=== PATIENT | female | born 1990 | race African-American/Black ===

== ENCOUNTER 2016-12-13 17:20 | Emergency (ER) | payer SELFPAY ==
[2016-12-13 17:26] VITALS: BP 121/87; PULSE 115; TEMP 99.9; BMI 26.0
--- NOTE | 2016-12-13 17:58 | PDOC ---
History of Present Illness - History of Present Illness Initial Comments: 12/13/16 18:24 The patient is a 26 year old female with a significant past medical history of anemia, who presents to the Emergency Department with sore throat since this morning. Patient states she was feeling sick since yesterday and woke up this morning with a sore throat. She reports associated symptoms of subjective fever and body aches. 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 LMP 2 weeks ago She denies chest pain, shortness of breath, headache and dizziness. She denies nausea, vomiting, diarrhea, and constipation. She denies dysuria, frequency, urgency, and hematuria. NKA to medication Denies past surgical history <Nancie Hampton - Last Filed: 12/13/16 18:24> - General History Source: Patient Exam Limitations: No Limitations <Aaliyah Hutchins - Last Filed: 12/15/16 12:36> - General Chief Complaint: Sore Throat Stated Complaint: SORE THROAT Time Seen by Provider: 12/13/16 17:51 Past History <Nancie Hampton - Last Filed: 12/13/16 18:24> - Past Medical History Anemia: Yes - Suicide/Smoking/Psychosocial Hx Smoking History: Never smoked Information on smoking cessation initiated: No Hx Alcohol Use: Yes Drug/Substance Use Hx: No Substance Use Type: Alcohol <Aaliyah Hutchins - Last Filed: 12/15/16 12:36> - Past Medical History Allergies/Adverse Reactions: Allergies Allergy/AdvReac Type Severity Reaction Status Date / Time No Known Allergies Allergy Verified 12/13/16 17:23 Home Medications: Ambulatory Orders Penicillin V Potassium [Pen Vee K -] 500 mg PO TID #30 tablet 12/13/16 Naproxen Sodium [Aleve] 440 mg PO ONCE 12/15/16 Review of Systems - Review of Systems Comments:: 12/13/16 18:24 GENERAL/CONSTITUTIONAL: + subjective fever, body aches No: chills,, loss of appetite. HEAD, EYES, EARS, NOSE AND THROAT: + sore throat,No: change in vision, ear pain , discharge, CARDIOVASCULAR: No: chest pain, lightheadedness, palpitations, syncope RESPIRATORY: No: cough, shortness of breath, wheezing, hemoptysis, stridor. GASTROINTESTINAL: No: nausea, vomiting, abdominal cramping, diarrhea, rectal bleeding, constipation. GENITOURINARY: No: dysuria, hematuria, frequency, urgency, flank pain. MUSCULOSKELETAL: No: back pain, neck pain, joint pain, muscle swelling or pain SKIN AND BREASTS: No: lesions, pallor, rash or easy bruising. NEUROLOGIC: No: headache, vertigo, paresthesias, weakness ENDOCRINE: No: unexplained weight gain or loss HEMATOLOGIC/LYMPHATIC: No: anemia, easy bleeding, swelling nodes <Nancie Hampton - Last Filed: 12/13/16 18:24> *Physical Exam - Vital Signs Last Vital Signs Temp Pulse Resp BP Pulse Ox 99.9 F H 115 H 18 121/87 100 12/13/16 17:23 12/13/16 17:23 12/13/16 17:23 12/13/16 17:23 12/13/16 17:23 - Physical Exam Comments: 12/13/16 18:25 GENERAL: The patient is in no acute distress. HEAD: Normal with no signs of trauma. EYES: PERRLA, EOMI, sclera anicteric, conjunctiva clear. ENT: +Left tonsil enlarged, erythematous, thick exudate on left tonsil. Tender lymphadenopathy. Ears normal, nares patent, Moist mucous membranes. NECK: Normal range of motion, supple without lymphadenopathy, JVD, or masses. LUNGS: Breath sounds equal, clear to auscultation bilaterally. No wheezes, and no crackles. HEART:Regular rate and rhythm, normal S1 and S2 without murmur, rub or gallop. ABDOMEN: Soft, nontender, normoactive bowel sounds. No guarding, no rebound. EXTREMITIES: Normal range of motion, no edema. No clubbing or cyanosis. No erythema, or tenderness. NEUROLOGICAL: Cranial nerves II through XII grossly intact. Normal speech. No focal neurological deficits. MUSCULOSKELETAL: Back non-tender to palpation, no CVA tenderness SKIN: Warm, Dry, normal turgor, no rashes or lesions noted. <Nancie Hampton - Last Filed: 12/13/16 18:24> - Vital Signs Last Vital Signs Temp Pulse Resp BP Pulse Ox 99.9 F H 115 H 18 121/87 100 12/13/16 17:23 12/13/16 17:23 12/13/16 17:23 12/13/16 17:23 12/13/16 17:23 <Aaliyah Hutchins - Last Filed: 12/15/16 12:36> ED Treatment Course - ADDITIONAL ORDERS Additional order review: 12/13/16 17:34 Group A Strep Rapid Antigen - Final Throat NEGATIVE FOR THE ANTIGEN OF BETA HEMOLYTIC STREP GROUP A <Nancie Hampton - Last Filed: 12/13/16 18:24> Medical Decision Making - Medical Decision Making A portion of this note was documented by scribe services under my direction. I have reviewed the details of the note, within reason, and agree with the documentation with the following case summary and management plan written by me. 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 <Nancie Hampton - Last Filed: 12/13/16 18:24> - Discharge Dispostion Admit: No <Aaliyah Hutchins - Last Filed: 12/15/16 12:36> Diagnosis at time of Disposition: Pharyngitis Qualifiers: Pharyngitis/tonsillitis etiology: unspecified etiology Qualified Code(s): J02.9 - Acute pharyngitis, unspecified - Discharge Dispostion Disposition: HOME Condition at time of disposition: Stable - Prescriptions Prescriptions: Penicillin V Potassium [Pen Vee K -] 500 mg PO TID #30 tablet - Patient Instructions Printed Discharge Instructions: DI for Pharyngitis/Tonsillopharyngitis -- Adult Additional Instructions: THank you for coming to the ER today Please monitor yourself for fevers Please take your antibiotics for your throat infection Please monitor yourself for DROOLING, DIFFICULTY SWALLOWING, NOISY BREATHING, MUFFLED VOICE, If that happens or if you have any other concerns, Come back to the ER
== END 2016-12-13 18:24 | disposition home or self-care (01) ==
LOC: FER 17:20
DX: J02.9 Acute pharyngitis, unspecified (principal)
CPT/HCPCS: 87070; 87430; 99281-25

== ENCOUNTER 2016-12-15 02:42 | Emergency (ER) | payer SELFPAY ==
[2016-12-15 02:50] VITALS: BP 138/91; BMI 26.0
--- NOTE | 2016-12-15 02:53 | PDOC ---
History of Present Illness - General Chief Complaint: Cold Symptoms Stated Complaint: FEVER, BODY ACHES Time Seen by Provider: 12/15/16 02:53 History Source: Patient Exam Limitations: No Limitations - History of Present Illness Initial Comments: 12/15/16 03:00 This is a 26-year-old female who comes in complaining of fever, chills and sore throat. Patient was here 2 days ago with an exudative pharyngitis and given pen VK. Patient said she's been taking the Pen-Vee K without any improvement in her symptoms. Patient's rapid strep at that time was negative as well as her culture was negative for strep. Patient did not have a test done for mono. Patient comes in now saying that she is unable to eat and has a temperature of 102. PAST MEDICAL HISTORY: no significant history PAST SURGICAL HISTORY: no significant history FAMILY HISTORY: no pertinant history SOCIAL HISTORY: Pt lives with family and is employed. MEDICATIONS: reviewed ALLERGIES: As per nursing notes Review of Systems General: Positive fevers or chills, no weakness, no weight loss HEENT: No change in vision. Positive sore throat,. No ear pain CardioVascular: No chest pain or shortness of breath Respiratory:No cough, or wheezing. Gastrointestinal: no nausea, vomitting, diarrhea or constipation, No rectal bleeding Genitourinary: No dysuria, hematuria, or frequency Musculoskeletal: No joint or muscle pain or swelling Neurologic: No headache, vertigo, dizziness or loss of consciousness Psychiatric: nor depression Skin: No rashes or easy bruising Endocrine: no increased thirst or abnormal weight change Allergic: no skin or latex allergy All other systems reviewed and normal Exam: General: Well-nourished well-developed individual, no acute distress HEENT: Throat: There is moderate erythema of the posterior oropharynx with, tonsils moderately enlarged with exudate bilateral, there is no peritonsillar abscess Neck: Supple, no meningeal signs, positive bilateral lymphadenopathy Eyes::Pupils equal reactive and round, extraocular motion intact Chest: Nontender to palpation Cardiac: S1-S2 normal, regular rate and rhythm, no murmurs rubs or gallops Respiratory: Lungs clear to auscultation bilateral Abdomen: Soft, nondistended, normal bowel sounds, nontender to palpation diffusely Extremities: Warm, dry, no cyanosis, clubbing, or edema Skin: No rashes Neuro: Alert and oriented x3, nonfocal exam, grossly intact, normal gait Psych: Normal mood and affect Past History - Past Medical History Allergies/Adverse Reactions: Allergies Allergy/AdvReac Type Severity Reaction Status Date / Time No Known Allergies Allergy Verified 12/13/16 17:23 Home Medications: Ambulatory Orders Penicillin V Potassium [Pen Vee K -] 500 mg PO TID #30 tablet 12/13/16 Naproxen Sodium [Aleve] 440 mg PO ONCE 12/15/16 Anemia: Yes - Suicide/Smoking/Psychosocial Hx Smoking History: Never smoked Hx Alcohol Use: Yes Drug/Substance Use Hx: No Substance Use Type: Alcohol *Physical Exam - Vital Signs Last Vital Signs Temp Pulse Resp BP Pulse Ox 102.1 F H 121 H 16 138/91 98 12/15/16 02:47 12/15/16 02:47 12/15/16 02:47 12/15/16 02:47 12/15/16 02:47 ED Treatment Course - LABORATORY CBC & Chemistry Diagram: 12/15/16 03:00 *DC/Admit/Observation/Transfer Diagnosis at time of Disposition: Pharyngitis Qualifiers: Pharyngitis/tonsillitis etiology: unspecified etiology Qualified Code(s): J02.9 - Acute pharyngitis, unspecified - Discharge Dispostion Disposition: HOME Condition at time of disposition: Stable - Patient Instructions Additional Instructions: Your mono test was not available tonight will not be done until the morning. Call in the morning for the result. It is positive the symptoms will eventually run their course but will take several more days before the pharyngitis since improved. Purchase [id number] liquid Tylenol or Motrin that you can use for pain as it is easier to swallow and try to stay hydrated as much as possible. Return to the emergency department immediately with ANY new, persistent or worsening symptoms. Continue any medications as previously prescribed by your physician. You should follow up with your primary doctor as soon as possible regarding today's emergency department visit. . Please make sure your doctor reviews the results of your emergency evaluation. Thank you for coming to the Emergency Department today for your care. It was a pleasure to see you today. Please note that your evaluation is INCOMPLETE until you follow-up with your doctor.
[2016-12-15] MEDS ORDERED: ACETAMINOPHEN 1000 MG/100 ML VIAL (NON FORMULARY) IVPB ONE (02:58)
[2016-12-15] MEDS ORDERED: SODIUM CHLORIDE 1,000 ML IV ONE (02:59)
[2016-12-15] MEDS ORDERED: DEXAMETHASONE SOD PHOSPHATE 10 MG/1 ML VIAL IVPUSH ONE (02:59)
[2016-12-15] MEDS ORDERED: DEXAMETHASONE SOD PHOSPHATE 10 MG/1 ML VIAL ONE (03:05)
[2016-12-15] MEDS ORDERED: ACETAMINOPHEN INJECTION 100 ML IVPB ONE (03:05)
[2016-12-15 03:41] LABS: BASOPHIL 0.6 % (0-2.0); EOSINOPHIL 0.1 % (0-4.5); MCH 20.3 pg (25.7-33.7); MCHC 32.1 g/dl (32.0-36.0); MEAN CELL VOLUME 63.1 fl (80-96); MEAN PLT VOLUME 9.7 fl (7.5-11.1); NEUTROPHILS 74.9 % (42.8-82.8); PLATELET COUNT 189 K/MM3 (134-434); RDW 19.8 % (11.6-15.6); WHITE BLOOD COUNT 9.4 K/mm3 (4.0-10.0)
[2016-12-15 04:12] VITALS: PULSE 93; TEMP 99.8
== END 2016-12-15 04:20 | disposition home or self-care (01) ==
LOC: FER 02:42
PROC: 3E033NZ Introduction of Analgesics, Hypnotics, Sedatives into Peripheral Vein, Percutaneous Approach (ICD-10-PCS; principal; 2016-12-15)
PROC: 3E033GC Introduction of Other Therapeutic Substance into Peripheral Vein, Percutaneous Approach (ICD-10-PCS; 2016-12-15)
PROC: 3E0337Z Introduction of Electrolytic and Water Balance Substance into Peripheral Vein, Percutaneous Approach (ICD-10-PCS; 2016-12-15)
DX: J02.9 Acute pharyngitis, unspecified (principal); D64.9 Anemia, unspecified
CPT/HCPCS: 36415; 85025; 86308; 99282-25

== ENCOUNTER 2018-09-23 02:45 | Inpatient (IN) | payer BC ==
[2018-09-23] MEDS: ELECTROLYTE-148 SOLN 1,000 ML IV SCH ×2 (03:15→05:30)
[2018-09-23 03:30] VITALS: BMI 31.7
[2018-09-23] MEDS ORDERED: PROMETHAZINE HCL 25 MG/1 ML VIAL IVPB ONE (03:45)
[2018-09-23] MEDS ORDERED: BUTORPHANOL TARTRATE 2 MG/ML VIAL IVPB ONE (03:45)
[2018-09-23 03:51] LABS: BASO % 0.2 % (0-2.0); EOS % 2.3 % (0-4.5); HEMATOCRIT 30.5 % (32.4-45.2); HEMOGLOBIN 9.4 GM/dL (10.7-15.3); MCHC 30.7 g/dl (32.0-36.0); MEAN PLT VOLUME 9.2 fl (7.5-11.1); MONO % 7.1 % (3.8-10.2); NEUT % 72.4 % (42.8-82.8); PLATELET COUNT 195 K/MM3 (134-434); RBC 4.92 M/mm3 (3.60-5.2); RDW 23.8 % (11.6-15.6); WHITE BLOOD COUNT 10.5 K/mm3 (4.0-10.0)
[2018-09-23 04:03] LABS: INR 0.94 (0.83-1.09); PROTHROMBIN TIME (PATIENT) 11.1 SEC (9.7-13.0)
[2018-09-23 04:06] LABS: ACTIVATED PTT 31.1 SECONDS (25.2-36.5)
[2018-09-23 04:10] LABS: BLOOD UREA NITROGEN 7.9 mg/dL (7-18); CALCIUM 8.4 mg/dL (8.5-10.1); CREATININE 0.5 mg/dL (0.55-1.3)
[2018-09-23] MEDS ORDERED: FENTANYL/BUPIVACAINE/NS/PF - PCEA - 50 ML DISP.SYRIN EP ONE ×4 (04:48→20:24)
[2018-09-23] MEDS ORDERED: NALOXONE HCL 0.4 MG/ML VIAL IVPUSH PRN (05:49)
[2018-09-23] MEDS: FENTANYL/BUPIVACAINE/NS/PF - PCEA - 50 ML DISP.SYRIN EP SCH (05:50)
[2018-09-23 06:14] LABS: ANISOCYTOSIS 2+; MACROCYTOSIS 0; PLATELET ESTIMATE DECREASED
--- NOTE | 2018-09-23 11:24 | HP ---
"Past Medical History - Admission History of Present Illness: 28 yo @ 40 0/7 wks by first trimester ultrasound, EDC 09/23/2018 complicated by: 1. Elevated 1 H GCT - 147; passed 3 H GTT (82 | 168 | 150 | 135) Most recent growth 2867 (52%ile) on 08/26/2018 2. Late care; first visit at 18 wks, no visit between 18-26 weeks 3. Enlarged right kidney Measured 8.1 mm on 09/13/2018 Patient presents with chief complaint of contractions, she was found to be 3 cm dilated on admission. She reports movement, denies leakage of fluid or vaginal bleeding History Source: Patient Limitations to Obtaining History: No Limitations - Past Medical History Cardiovascular: No: HTN Pulmonary: No: Asthma ...: 2 ...Para: 0 ...Term: 0 ...: 0 ...Spon : 0 ...Induced : 1 ...Multiple Gestation: 0 ...LMP: 12/22/17 ... Weeks Gestation by Dates: 39.2 ...EDC by Dates: 09/28/18 ...EDC by Sono: 09/23/18 Heme/Onc: No: Anemia - Past Surgical History Hx Myomectomy: No Hx Transabdominal Cerclage: No Additional Surgical History: Hernia Repair - Smoking History Smoking history: Never smoked Have you smoked in the past 12 months: No - Alcohol/Substance Use Hx Alcohol Use: No History of Substance Use: reports: None - Social History History of Recent Travel: No Home Medications - Allergies Allergies/Adverse Reactions: Allergies Allergy/AdvReac Type Severity Reaction Status Date / Time No Known Allergies Allergy Verified 09/23/18 03:17 - Home Medications Home Medications: Ambulatory Orders Vit No.129/Iron/Folic [ One Daily Tablet] 1 each PO DAILY 09/23 Family Disease History - Family Disease History Family History: Denies Review of Systems - Review of Systems Constitutional: reports: No Symptoms Neck: reports: No Symptoms Cardiovascular: reports: No Symptoms Respiratory: reports: No Symptoms Gastrointestinal: reports: No Symptoms Musculoskeletal: reports: No Symptoms Integumentary: reports: No Symptoms Neurological: reports: No Symptoms Endocrine: reports: No Symptoms Hematology/Lymphatic: reports: No Symptoms Psychiatric: reports: No Symptoms Physical Exam - Maternity Vital Signs: Vital Signs Temperature 98.4 F 09/23/18 08:00 Pulse Rate 104 H 09/23/18 10:30 Respiratory Rate 18 09/23/18 10:30 Blood Pressure 114/59 L 09/23/18 10:30 O2 Sat by Pulse Oximetry (%) 99 09/23/18 10:30 Constitutional: Yes: Well Nourished, No Distress, Calm Cardiovascular: Yes: Regular Rate and Rhythm Lungs: Clear to auscultation - Abdominal Exam/OB Number of Fetuses: Single Presentation: Vertex Category: I - Labs Lab Results: CBC, BMP 09/23/18 03:30 09/23/18 03:30 PNL - O positive, antibody negative, RPR NR; HIV neg; HCV neg; HBs Ag neg; Hg Cielo AA; Parvo IgG pos; Rubella Imm; Varicella Imm; GCT elevated, normal GTT, GBS negative Hemorrhage Risk Assessment - Risk Factors Medium Risk Factors: Yes: None High Risk Factors: Yes: None Risk Score: 1 Risk Level: Medium Risk Assessment/Plan 28 yo @ 40 wks active labor 1. Admit to L&D 2. Consents reviewed and signed 3. GBS negative 4. Category I FHT 5. Pain well controlled with epidural 6. Will proceed with expectant management"
--- NOTE | 2018-09-23 20:41 | PN ---
Progress Note, Labor Vaginal Exam #1 Labor Exam Date: 09/23/18 Labor Exam Time: 20:15 Heart Rate (range): 130's Dilatation: 7-8cm Effacement (%): 80% Amniotic Membrane Status: Ruptured (thick meconium) Presentation: Vertex/Position Station: -4 Remarks: Minimal progress since am head is unengaged Thick meconium Patient counseled to have a c/section, consent signed O2 by face mask
[2018-09-23] MEDS ORDERED: LIDO 2%/EPI 1:200000 PRESRVFRE (20 ML SDVIAL) ONE (21:45)
[2018-09-23] MEDS ORDERED: PHENYLEPHRINE HCL 10 MG/1 ML SINGLE DOSE VIAL ONE ×2 (22:09→22:22)
[2018-09-23] MEDS ORDERED: OXYTOCIN 10 UNITS/ML VIAL ONE (22:09)
[2018-09-23] MEDS ORDERED: KETOROLAC TROMETHAMINE 30 MG/1 ML VIAL ONE (22:09)
[2018-09-23] MEDS ORDERED: IBUPROFEN 800 MG/8 ML IJ IVPB PRN (23:15)
[2018-09-23] MEDS ORDERED: oxyCODONE HCL 5 MG TABLET PO PRN ×2 (23:15)
[2018-09-23] MEDS ORDERED: BENZOCAINE 28 GM HEMORRHOIDAL OINTMENT PR PRN (23:15)
[2018-09-23] MEDS ORDERED: BENZOCAINE 20% 57 GM BOTTLE TP PRN (23:15)
[2018-09-23] MEDS ORDERED: OXYTOCIN 20 UNITS in 0.9% NS 20 UNIT/1,000 ML INFUS.BAG IV SCH (23:15)
[2018-09-23] MEDS ORDERED: WITCH HAZEL 50% (TUCKS) 40 PAD/JAR PAD TP PRN (23:15)
[2018-09-23] MEDS ORDERED: METHYLERGONOVINE MALEATE 0.2 MG/1 ML AMP IM PRN (23:15)
[2018-09-23] MEDS ORDERED: diphenhydrAMINE HCL 25 MG CAPSULE (FP) PO PRN (23:15)
--- NOTE | 2018-09-23 23:15 | OP ---
Operative Note - Note: Operative Date: 09/23/18 Pre-Operative Diagnosis: 28yo P0 @ 40 wks with Category 2 FHR, thick meconium, failure to descent Operation: Primary LST c/section Findings: Viable female, APGARs 8/9, WT 7.9lb Normal bl tubes and ovaries Post-Operative Diagnosis: Same as Pre-op Surgeon: Alpa Blanc [facility] Music Therapist: Montrell Guerrero Anesthesiologist/TROUBLE CLERK: Ezio Eagle Anesthesia: Epidural Estimated Blood Loss (mls): 700 Drains, Volume Out (mls): 150 Fluid Volume Replaced (mls): 800 Operative Report Dictated: Yes
--- NOTE | 2018-09-23 23:25 | PN ---
Delivery - Delivery Section: Primary Type of Anesthesia: Epidural Episiotomy/Laceration: None EBL (cc): 700 Delivery, Single - Stages of Labor Date of Delivery: 09/23/18 Time of Delivery: : Date Placenta Delivered: 09/23/18 Time Placenta Delivered: Placenta: Yes: Expressed - Condition of Infant Landman/Internal Combustion Engineer Present: Yes Name: Dayna Suazo Gender: Female Weight: 7 lb 9 oz Position: Right, OA - 1 Minute Total Score: 8 5 Minutes Total Score: 9 - Feeding Plan Initial Plan: Elected not to breastfeed exclusively throughout hospitalization Benefits of Exclusively reinforced: Yes Remarks - Remarks Remarks: 28yo P0 @ 40 wks with Category 2 FHR Thick meconium and failure to descent
[2018-09-23] MEDS ORDERED: ONDANSETRON 4 MG/2 ML VIAL IVPUSH PRN (23:46)
--- NOTE | 2018-09-24 00:34 | OP ---
DATE OF OPERATION: 09/23/2018 PREOPERATIVE DIAGNOSIS: 28-year-old para 0 at 40 weeks, category 2 heart rate, thick meconium, failure to descend. OPERATION: Primary low segment transverse section. FINDINGS: Viable female Apgars 8 and 9, weight 7.5 pounds, normal bilateral tubes and ovaries. POSTOPERATIVE DIAGNOSIS: 28-year-old para 0 at 40 weeks, category 2 heart rate, thick meconium, failure to descend. SURGEON: Alpa Blanc M.D. ANESTHESIOLOGIST: Piotr Benson ANESTHESIOLOGIST: Harley Eagle M.D. ANESTHESIA: DESCRIPTION OF OPERATIVE PROCEDURE: After assuring informed consent, patient was brought to the operating room where she was placed in dorsal supine position with left lateral tilt. Abdomen was prepped and draped in sterile fashion. Pfannenstiel skin incision was created with the scalpel, carried down to the level of the fascia with Bovie cautery. Fascia was incised with Bovie cautery, extended bilaterally with Bovie cautery and dissected through the rectus abdominis muscle with the Bovie cautery. The rectus abdominis muscle was split in the midline. Peritoneum was identified, tented, and entered bluntly. The bilateral gutters were packed with lap sponges. Vesicouterine peritoneum was identified, tented, and bladder flap was created with Metzenbaum scissors and retracted with low edge of the Geoffrey. Uterine incision was created with the scalpel and extended bilaterally with bandage scissors. 's head was identified and delivered through the uterine incision in the AISHA position. Thick meconium was noted. The rest of the 's body was delivered without any trauma or difficulty. Cord was clamped x2. The was handed to the waiting cover inspector. Piece of the umbilical cord was given for determination of the pH. Placenta was expressed. The uterus was left intraperitoneally and repaired with 0 Biosyn in running, locking fashion and the 2nd imbricating layer was created with 0 Biosyn. Abdomen was copiously irrigated and bilateral normal tubes were visualized. Lap sponges were removed, and peritoneum was repaired with 0 Biosyn in a running fashion. Rectus abdominis muscle was reapproximated in the midline with 0 Biosyn. Fascia was repaired with 0 Vicryl in the running fashion. Subcuticular suture with 4-0 V-Loc Biosyn stitch was created. Excellent hemostasis was noted throughout. The lap, sponges, and instrument count was correct x2. Patient was brought to the recovery room in stable condition. Estimated blood loss was 700 mL. Urine output was 150 mL. Patient received 800 mg of IV fluids, brought to the recovery room in stable condition. Shabbir [id number]
[2018-09-24] MEDS ORDERED: OXYTOCIN 20 UNITS in 0.9% NS 20 UNIT/1,000 ML INFUS.BAG IV ONE (00:38)
[2018-09-24] MEDS: CEFAZOLIN 1 GM/D5W 1 GM/50 ML BAG IVPB SCH ×2 (02:26→10:30)
[2018-09-24] MEDS: DEXTROSE 5%-LACTATED RINGERS 1,000 ML IV SCH (07:00)
[2018-09-24] MEDS: FENTANYL/BUPIVACAINE/NS/PF - PCEA - 50 ML DISP.SYRIN EP SCH (07:01)
[2018-09-24 07:49] LABS: BASO % 0.2 % (0-2.0); EOS % 0.3 % (0-4.5); HEMATOCRIT 24.3 % (32.4-45.2); HEMOGLOBIN 7.4 GM/dL (10.7-15.3); LYMPH % 11.9 % (8-40); MCHC 30.4 g/dl (32.0-36.0); MEAN CELL VOLUME 61.6 fl (80-96); MEAN PLT VOLUME 9.3 fl (7.5-11.1); MONO % 7.3 % (3.8-10.2); NEUT % 80.3 % (42.8-82.8); PLATELET COUNT 174 K/MM3 (134-434); RBC 3.94 M/mm3 (3.60-5.2); RDW 23.8 % (11.6-15.6); WHITE BLOOD COUNT 11.5 K/mm3 (4.0-10.0)
[2018-09-24 08:17] LABS: MCH 18.7 pg (25.7-33.7)
[2018-09-24] MEDS: ELECTROLYTE-148 SOLN 1,000 ML IV SCH (09:30)
[2018-09-24] MEDS: ENOXAPARIN NA (PORCINE) 40 MG/0.4 ML DISP.SYRIN SQ SCH (10:30)
--- NOTE | 2018-09-24 11:25 | PN ---
Post Progress Note - Subjective Subjective: Patient without acute complaints. Tolerating clears, without nausea or vomiting No voiding, perrin in place draining clear fluid No ambulation or flatus yet. Denies fevers or chills. No complains of Dizziness or palpitations Pain well controlled. Post Day: 1 Type of Delivery: Primary C/S Vital Signs: Vital Signs Temperature 98.0 F 09/24/18 06:00 Pulse Rate 100 H 09/24/18 06:00 Respiratory Rate 18 09/24/18 09:00 Blood Pressure 138/82 09/24/18 06:00 O2 Sat by Pulse Oximetry (%) 100 09/23/18 23:50 Breast Exam: Yes: Soft Uterus: Yes: Fundus Firm, Fundus @ umbilicus Incision: Yes: Dressing dry and intact Abdomen/GI: Yes: Abdomen soft Lochia: Yes: Rubra Lochia, amount: Small Extremities: Yes: Calves non-tender Perineum: Yes: Intact Activity: Other (in bed with perrin catheter) - Labs Labs: CBC WBC 11.5 K/mm3 (4.0-10.0) H 09/24/18 07:10 RBC 3.94 M/mm3 (3.60-5.2) 09/24/18 07:10 Hgb 7.4 GM/dL (10.7-15.3) L 09/24/18 07:10 Hct 24.3 % (32.4-45.2) L D 09/24/18 07:10 MCV 61.6 fl (80-96) L 09/24/18 07:10 MCH 18.7 pg (25.7-33.7) L 09/24/18 07:10 MCHC 30.4 g/dl (32.0-36.0) L 09/24/18 07:10 RDW 23.8 % (11.6-15.6) H 09/24/18 07:10 Plt Count 174 K/MM3 (134-434) 09/24/18 07:10 MPV 9.3 fl (7.5-11.1) 09/24/18 07:10 Absolute Neuts (auto) 9.2 K/mm3 (1.5-8.0) H 09/24/18 07:10 Neutrophils % 80.3 % (42.8-82.8) 09/24/18 07:10 Lymphocytes % 11.9 % (8-40) D 09/24/18 07:10 Monocytes % 7.3 % (3.8-10.2) 09/24/18 07:10 Eosinophils % 0.3 % (0-4.5) D 09/24/18 07:10 Basophils % 0.2 % (0-2.0) 09/24/18 07:10 Nucleated RBC % 0 % (0-0) 09/24/18 07:10 Hypochromia 2+ 09/23/18 03:30 Platelet Estimate Decreased 09/23/18 03:30 Polychromasia 0 09/23/18 03:30 Poikilocytosis 1+ 09/23/18 03:30 Anisocytosis 2+ 09/23/18 03:30 Microcytosis 2+ 09/23/18 03:30 Macrocytosis 0 09/23/18 03:30 Assessment/Plan 28yo P1 now POD # 1 s/p 1' LST c/section for CPD, Category 2 FHR, Thick meconium VSS, Afebrile Doing well Odered Heplock IVF D/C Perrin Rh pos no need for RhoGam OOB to Chair hemodynamically stable cont. routine care
[2018-09-24] MEDS: IBUPROFEN 600 MG TABLET (FP) PO PRN ×2 (13:44→20:33)
[2018-09-24] MEDS: SIMETHICONE 80 MG TAB.CHEW (FP) PO PRN ×2 (13:44→20:33)
[2018-09-24] MEDS: ACETAMINOPHEN 325 MG TABLET (FP) PO PRN ×2 (13:45→20:34)
[2018-09-24] MEDS ORDERED: BISACODYL 10 MG SUPP.RECT PR PRN (23:15)
[2018-09-25] MEDS: SIMETHICONE 80 MG TAB.CHEW (FP) PO PRN ×2 (00:41→07:25)
[2018-09-25] MEDS: IBUPROFEN 600 MG TABLET (FP) PO PRN ×4 (00:42→23:29)
[2018-09-25] MEDS: ACETAMINOPHEN 325 MG TABLET (FP) PO PRN ×4 (00:42→23:29)
[2018-09-25] MEDS: ELECTROLYTE-148 SOLN 1,000 ML IV SCH (08:19)
[2018-09-25] MEDS: FENTANYL/BUPIVACAINE/NS/PF - PCEA - 50 ML DISP.SYRIN EP SCH (08:19)
[2018-09-25] MEDS: DEXTROSE 5%-LACTATED RINGERS 1,000 ML IV SCH ×2 (08:32→23:26)
[2018-09-25] MEDS: ENOXAPARIN NA (PORCINE) 40 MG/0.4 ML DISP.SYRIN SQ SCH (10:43)
--- NOTE | 2018-09-25 10:55 | PN ---
Progress Note (short form) - Note Progress Note: Post op day#2.S/P C Section under epidural anesthesia with duramorph uneventful.Patient stable and has little pain for which she is on medication.No any anesthesia related problem.Patient Dc from the anesthesia care.
--- NOTE | 2018-09-25 17:31 | PN ---
Post Progress Note - Subjective Subjective: Patient without acute complaints. Tolerating clears, without nausea or vomiting Voiding without a problem Ambulating, + flatus Denies fevers or chills. Pain well controlled. Post Day: 2 Type of Delivery: Primary C/S Vital Signs: Vital Signs Temperature 98.5 F 09/25/18 10:00 Pulse Rate 92 H 09/25/18 10:00 Respiratory Rate 18 09/25/18 10:00 Blood Pressure 126/67 09/25/18 10:00 O2 Sat by Pulse Oximetry (%) 100 09/23/18 23:50 - Labs Labs: CBC WBC 11.5 K/mm3 (4.0-10.0) H 09/24/18 07:10 RBC 3.94 M/mm3 (3.60-5.2) 09/24/18 07:10 Hgb 7.4 GM/dL (10.7-15.3) L 09/24/18 07:10 Hct 24.3 % (32.4-45.2) L D 09/24/18 07:10 MCV 61.6 fl (80-96) L 09/24/18 07:10 MCH 18.7 pg (25.7-33.7) L 09/24/18 07:10 MCHC 30.4 g/dl (32.0-36.0) L 09/24/18 07:10 RDW 23.8 % (11.6-15.6) H 09/24/18 07:10 Plt Count 174 K/MM3 (134-434) 09/24/18 07:10 MPV 9.3 fl (7.5-11.1) 09/24/18 07:10 Absolute Neuts (auto) 9.2 K/mm3 (1.5-8.0) H 09/24/18 07:10 Neutrophils % 80.3 % (42.8-82.8) 09/24/18 07:10 Lymphocytes % 11.9 % (8-40) D 09/24/18 07:10 Monocytes % 7.3 % (3.8-10.2) 09/24/18 07:10 Eosinophils % 0.3 % (0-4.5) D 09/24/18 07:10 Basophils % 0.2 % (0-2.0) 09/24/18 07:10 Nucleated RBC % 0 % (0-0) 09/24/18 07:10 Hypochromia 2+ 09/23/18 03:30 Platelet Estimate Decreased 09/23/18 03:30 Polychromasia 0 09/23/18 03:30 Poikilocytosis 1+ 09/23/18 03:30 Anisocytosis 2+ 09/23/18 03:30 Microcytosis 2+ 09/23/18 03:30 Macrocytosis 0 09/23/18 03:30 Assessment/Plan 28yo P1 now POD # 2 s/p 1' LST c/section for CPD, Category 2 FHR, Thick meconium VSS, Afebrile Doing well Rh pos no need for RhoGam Encourage ambulation hemodynamically stable cont. routine care
[2018-09-25] MEDS ORDERED: SENNOSIDES/DOCUSATE COMBO (SENNA PLUS) TABLET (UD) PO PRN (22:00)
[2018-09-26 07:29] LABS: BASO % 0.3 % (0-2.0); EOS % 3.2 % (0-4.5); HEMATOCRIT 25.4 % (32.4-45.2); HEMOGLOBIN 7.6 GM/dL (10.7-15.3); LYMPH % 16.8 % (8-40); MCHC 29.9 g/dl (32.0-36.0); MEAN CELL VOLUME 62.7 fl (80-96); MEAN PLT VOLUME 8.8 fl (7.5-11.1); MONO % 5.3 % (3.8-10.2); NEUT % 74.4 % (42.8-82.8); RBC 4.05 M/mm3 (3.60-5.2); RDW 23.6 % (11.6-15.6); WHITE BLOOD COUNT 12.3 K/mm3 (4.0-10.0)
[2018-09-26 08:22] LABS: MCH 18.8 pg (25.7-33.7); PLATELET COUNT 195 K/MM3 (134-434)
[2018-09-26] MEDS: IBUPROFEN 600 MG TABLET (FP) PO PRN (09:11)
[2018-09-26] MEDS: ENOXAPARIN NA (PORCINE) 40 MG/0.4 ML DISP.SYRIN SQ SCH (09:11)
[2018-09-26 11:21] LABS: ANISOCYTOSIS 2+; MACROCYTOSIS 1+; OVALOCYTE 1+; PLATELET ESTIMATE NORMAL; TEAR DROP CELLS 1+
--- NOTE | 2018-09-26 11:29 | PN ---
Post Progress Note - Subjective Subjective: Patient without acute complaints. Reports tolerating oral intake without nausea or vomiting. Ambulating without dizziness. Denies fevers or chills. Pain well controlled with oral pain medication. without difficulty. Passing flatus. Post Day: 3 Type of Delivery: Primary C/S Vital Signs: Vital Signs Temperature 98.2 F 09/25/18 22:00 Pulse Rate 88 09/25/18 22:00 Respiratory Rate 18 09/25/18 22:00 Blood Pressure 131/77 09/25/18 22:00 O2 Sat by Pulse Oximetry (%) 100 09/26/18 09:00 Breast Exam: Yes: Soft Uterus: Yes: Fundus Firm Incision: Yes: Sutures intact. No: Redness, Oozing Abdomen/GI: Yes: Abdomen soft, Abdominal Distention (mild soft), Tender ( minimal incisional), Passing flatus, Tolerating PO Lochia: Yes: Rubra Lochia, amount: Small Extremities: Yes: Calves non-tender, Edema (trace) Activity: Ambulating - Labs Labs: CBC WBC 12.3 K/mm3 (4.0-10.0) H 09/26/18 06:44 RBC 4.05 M/mm3 (3.60-5.2) 09/26/18 06:44 Hgb 7.6 GM/dL (10.7-15.3) L 09/26/18 06:44 Hct 25.4 % (32.4-45.2) L 09/26/18 06:44 MCV 62.7 fl (80-96) L 09/26/18 06:44 MCH 18.8 pg (25.7-33.7) L 09/26/18 06:44 MCHC 29.9 g/dl (32.0-36.0) L 09/26/18 06:44 RDW 23.6 % (11.6-15.6) H 09/26/18 06:44 Plt Count 195 K/MM3 (134-434) 09/26/18 06:44 MPV 8.8 fl (7.5-11.1) 09/26/18 06:44 Absolute Neuts (auto) 9.1 K/mm3 (1.5-8.0) H 09/26/18 06:44 Neutrophils % 74.4 % (42.8-82.8) 09/26/18 06:44 Lymphocytes % 16.8 % (8-40) D 09/26/18 06:44 Monocytes % 5.3 % (3.8-10.2) 09/26/18 06:44 Eosinophils % 3.2 % (0-4.5) D 09/26/18 06:44 Basophils % 0.3 % (0-2.0) 09/26/18 06:44 Nucleated RBC % 0 % (0-0) 09/26/18 06:44 Hypochromia 2+ 09/23/18 03:30 Platelet Estimate Decreased 09/23/18 03:30 Polychromasia 0 09/23/18 03:30 Poikilocytosis 1+ 09/23/18 03:30 Anisocytosis 2+ 09/23/18 03:30 Microcytosis 2+ 09/23/18 03:30 Macrocytosis 0 09/23/18 03:30 Assessment/Plan 30 POD # 3 s/p primary CD, afebrile, vital signs stable, doing well 1. Patient desires DC home today if baby stable for DC home - awaiting bili level 2. Patient encouraged to contact MD for: - Severe pain not controlled by oral pain medication - Fevers or chills - Nausea or vomiting, intolerance of oral intake - Incision redness, tenderness or discharge 3. Patient to follow up in office in 1-2 weeks for incision check, 4-6 weeks for visit
[2018-09-26 11:31] VITALS: BP 135/81; PULSE 89; TEMP 98.7
--- NOTE | 2018-09-26 15:45 | DS ---
Physical Exam-CERTIFIED MEDICAL BILLER Vital Signs: Vital Signs Temperature 98.7 F 09/26/18 10:00 Pulse Rate 89 09/26/18 10:00 Respiratory Rate 20 09/26/18 10:00 Blood Pressure 135/81 09/26/18 10:00 O2 Sat by Pulse Oximetry (%) 100 09/26/18 09:00 Labs: CBC, BMP 09/26/18 06:44 09/23/18 03:30 Delivery - Delivery Section: Primary Type of Anesthesia: Epidural Episiotomy/Laceration: None EBL (cc): 700 Delivery, Single - Stages of Labor Date 1st Stage Initiatied: 09/23/18 Time 1st Stage Initiated: 03:05 Date of Delivery: 09/23/18 Time of Delivery: 22:24 Time Placenta Delivered: 22:25 Placenta: Yes: Expressed - Condition of Research Hydraulic Engineer/Tire Mold Tester Present: Yes Name: Dayna Suazo Infant Gender: Female Weight: 7 lb 9 oz Position: Right, OA Total Hours ROM (Hrs/Mins): 10hrs 45min - 1 Minute Total Score: 8 5 Minutes Total Score: 9 - Feeding Plan Initial Plan: Elected not to breastfeed exclusively throughout hospitalization Benefits of Exclusively reinforced: Yes Discharge Summary Reason For Visit: LABOR Current Active Problems Anemia (Acute) delivery delivered (Acute) Hospital Course: Patient admitted for labor Progressed to 8 cm, however head without decent. She underwent delivery POD # 1 patient ambulated, voiding, passing gas, tolerating oral intake and with adequate pain control. Noted to have mild asymptomatic anemia She fulfilled all criteria for discharge POD #3 Condition: Good - Instructions Diet, Activity, Other Instructions: Return to office in 1 week for incision check; 4-6 weeks for visit Physical activity Resume your normal everyday activity as tolerated no heavy lifting or exercise until seen by your surgeon. You may walk unlimited brisa of and climb stairs. You may resume driving the car when you feel safe and comfortable behind the wheel. No sexual activity as instructed. Wound care If you have a bandage, leave it on, and keep dry for 48-72 hours. After that time discard the outer bandage. If they are tapes on the skin under the out of bandage leave them in place. They will peel off in the next 7 to 10 days. Do Not Peel them off. You may shower the day after surgery. If there are tapes present on the skin, you may shower over them. Diet There are no dietary restrictions. Eat healthy, high-fiber foods. Drink 6 to 8 glasses of liquid each day. This will assist in keeping your bowels are regular. Pain management You may take Tylenol or acetaminophen or Ibuprofen (for example, Motrin, Advil etc.) as prescribed for moderate to severe pain. Call MD for any of the following: Severe pain not relieved by medication Fever of 101 or higher Excessive bleeding or drainage on dressing Inability to urinate [facility] Reference #: [id number] Referrals: Mallorie Mcfarlane MD [Staff Physician] - Disposition: HOME - Home Medications Comprehensive Discharge Medication List: Ambulatory Orders Vit No.129/Iron/Folic [ One Daily Tablet] 1 each PO DAILY 09/23 Ibuprofen [Motrin -] 600 mg PO QID #28 tablet 09/26/18 Oxycodone HCl/Acetaminophen [Percocet 5-325 mg Tablet] 1 tab PO Q6H #5 tablet MDD 4 09/26/18
--- NOTE | 2018-09-30 15:56 | PATH ---
Surgical Pathology Report Patient Name: MUSA CHANDLER Med. Rec. #: [id number] /Age/Gender: 1990 (Age: 28) / F Account: [id number] Location: [facility] OBS/CHIEF TECHNICAL OFFICER Taken: 09/23/2018 Received: 09/24/2018 Reported: 09/30/2018 Physicians: Shabbir Thrasher Specimen(s) Received PLACENTA Clinical History , 40 weeks, failure to descend, Cat II heart rate Final Diagnosis PLACENTA, SECTION: 474 G THIRD TRIMESTER PLACENTA WITH TRIVASCULAR UMBILICAL CORD AND FOCAL MILD ACUTE CHORIOAMNIONITIS. Electronically Signed Kathleen Cade M.D. Gross Description The specimen is received fresh labeled placenta and is a 474 gram, 16.5 x 13.5 x 3.3 cm. placenta with attached membranes and umbilical cord. The attached membranes are theodore, thick, cloudy and insert marginally. The umbilical cord measures 16 cm. in length and averages 1.2 cm. in diameter. The cord inserts eccentrically, 5 cm. to the nearest margin. No true knots or strictures are identified. Cut surface of the umbilical cord reveals 3 vessels. The surface is gallegos-blue with minimal fibrin deposition and appropriate caliber vessels. The maternal surface is red-brown with focal defects. Sectioning reveals red-brown, spongy parenchyma. No lesions are identified. Building Insulation Supervisor sections are submitted in three cassettes as follows: 1- membrane rolls and umbilical cord; 2-3- full thickness sections of placenta. 09/27/2018 [facility]09/27/2018
== END 2018-09-26 16:10 | disposition home or self-care (01) | DRG 788 ==
LOC: JDEL 02:45 → JLDR 03:05 → J3W 09-24 00:50
PROVIDERS: ADMIT Obstetrics & Gynecology; ATTEND Obstetrics & Gynecology
PROC: 10D00Z1 Extraction of Products of Conception, Low, Open Approach (ICD-10-PCS; principal; 2018-09-23)
DX: O48.0 Post-term pregnancy (principal); O77.0 Labor and delivery complicated by meconium in amniotic fluid; O32.4XX0 Maternal care for high head at term, not applicable or unspecified; O76 Abnormality in fetal heart rate and rhythm complicating labor and delivery; Z3A.40 40 weeks gestation of pregnancy; Z37.0 Single live birth
CPT/HCPCS: 36415; 36600; 80048; 82803; 85025; 85610; 85730; 86593; 86850; 86900; 86901; 87389; 88307-TC

== ENCOUNTER 2020-11-12 20:54 | Emergency (ER) | payer BC ==
[2020-11-12 21:14] VITALS: BP 124/76; PULSE 18; TEMP 98.2; BMI 28.3
[2020-11-12 21:16] LABS: EPITHELIAL CELLS FEW /hpf
[2020-11-12 21:18] LABS: HCG,QUALITATIVE URINE Negative
[2020-11-12] MEDS ORDERED: CIPROFLOXACIN 500 MG TABLET (RESTRICTED TO ID) PO ONE (21:21)
[2020-11-12] MEDS ORDERED: cefTRIAXone SODIUM 1 GM VIAL ONE (21:23)
[2020-11-12] MEDS ORDERED: CIPROFLOXACIN 250 MG TABLET (RESTRICTED TO ID) PO ONE (21:23)
== END 2020-11-12 21:36 | disposition home or self-care (01) ==
LOC: FER 20:54
PROC: 3E0233Z Introduction of Anti-inflammatory into Muscle, Percutaneous Approach (ICD-10-PCS; principal; 2020-11-12)
DX: N39.0 Urinary tract infection, site not specified (principal); N10 Acute pyelonephritis
CPT/HCPCS: 81003; 81015; 84703; 87086; 99284-25